=== PATIENT | male | born 2005 | race Caucasian/White ===

== ENCOUNTER 2025-04-03 09:47 | Emergency (ER) | payer SELFPAY ==
[~2025-04-03] VITALS: Ht 170.2 cm; Wt 81.0 kg
[2025-04-03 09:51] VITALS: O2SAT 99
[2025-04-03 09:54] VITALS: BP 119/70; PULSE 99; RESP 18; TEMP 36.7; O2SAT 99
[2025-04-03] MEDS ORDERED: CAPS42.514 TP (10:34)
== END 2025-04-03 10:58 | disposition home or self-care (01) ==
LOC: ER 09:47
DX: M79.675 Pain in left toe(s) (principal)
CPT/HCPCS: 99282